=== PATIENT | male | born 1990 | race Asian ===

== ENCOUNTER 2017-09-16 17:06 | Emergency (ER) | payer BC, MEDICAID ==
[~2017-09-16] VITALS: Ht 179.1 cm; Wt 93.0 kg
[2017-09-16] MEDS ORDERED: KETOROLAC 30 MG/1 ML ONE (17:48)
[2017-09-16 17:55] LABS: BLOOD UREA NITROGEN 9 mg/dL (7-18)
[2017-09-16] MEDS ORDERED: SODIUM CHLORIDE 0.9% 1,000ML IVBOLUS ONE (18:00)
[2017-09-16] MEDS ORDERED: KETOROLAC 30 MG/1 ML IVPush ONE (18:00)
[2017-09-16 18:33] LABS: HEMATOCRIT 42.4 % (39.2-51.8); HEMOGLOBIN 15.1 g/dL (13.7-18.0); WHITE BLOOD COUNT 8.4 x10^3/uL (3.4-10)
[2017-09-16 18:42] VITALS: BP 135/87
[2017-09-16] MEDS ORDERED: SODIUM CHLORIDE 0.9% 1,000 ML IV ONE (19:00)
== END 2017-09-16 19:14 | disposition home or self-care (01) ==
LOC: ED 19:08
DX: N20.1 Calculus of ureter (principal)
CPT/HCPCS: 36415; 74000; 80048; 81001; 82040; 85025; 87086; 96361; 96374; 99285; J1885; J7030

== ENCOUNTER 2018-08-16 17:52 | Emergency (ER) | payer MEDICAID ==
[~2018-08-16] VITALS: Ht 177.8 cm; Wt 94.7 kg
[2018-08-16 18:06] VITALS: BP 134/94
[2018-08-16] MEDS ORDERED: DIPH,PERTUSS(ACELL),TET VAC/PF 0.5 ML IM-VACC ONE (18:30)
== END 2018-08-16 20:13 | disposition home or self-care (01) ==
LOC: ED 19:40
DX: S01.01XA Laceration without foreign body of scalp, initial encounter (principal); X58.XXXA Exposure to other specified factors, initial encounter; Y93.89 Activity, other specified; Y92.69 Other specified industrial and construction area as the place of occurrence of the external cause; Y99.8 Other external cause status
CPT/HCPCS: 12031; 70450; 90471; 90715

== ENCOUNTER 2018-08-26 17:27 | Emergency (ER) | payer MEDICAID ==
[~2018-08-26] VITALS: Ht 177.8 cm; Wt 96.1 kg
[2018-08-26 17:32] VITALS: BP 123/86
== END 2018-08-26 18:24 | disposition home or self-care (01) ==
LOC: ED 18:20
DX: S01.01XD Laceration without foreign body of scalp, subsequent encounter (principal); X58.XXXD Exposure to other specified factors, subsequent encounter
CPT/HCPCS: 99281

== ENCOUNTER 2021-05-28 04:49 | Emergency (ER) | payer MEDICAID ==
[~2021-05-28] VITALS: Ht 175.3 cm; Wt 93.9 kg
--- NOTE | 2021-05-28 05:06 | NUR ---
PATIENT STATES HE HAS BEEN HAVING LEFT FLANK PAIN FOR APPROX 2 HOURS, PAIN IS 9/10. PATIENT STATES LAST TIME HE HAD THIS PAIN HE HAD KIDNEY STONES.
[2021-05-28] MEDS ORDERED: MORPHINE SULFATE 4 MG/ML, 1ML ONE ×2 (05:37→08:03)
[2021-05-28] MEDS ORDERED: KETOROLAC 30 MG/1 ML ONE (05:37)
[2021-05-28] MEDS ORDERED: SODIUM CHLORIDE 0.9% 1,000ML IV ONE (06:00)
[2021-05-28] MEDS ORDERED: KETOROLAC 30 MG/1 ML IVPush ONE (06:00)
[2021-05-28] MEDS ORDERED: SODIUM CHLORIDE FLUSH 10ML SYR IVF ONE (06:00)
[2021-05-28] MEDS: MORPHINE SULFATE 4 MG/ML, 1ML IVPush PRN ×2 (06:06→08:06)
[2021-05-28 06:36] LABS: MICROSCOPIC AUTO
--- NOTE | 2021-05-28 06:47 | NUR ---
PATIENT RESTING ON GURNEY. STATES PAIN IS DECREASED. NAD AT THIS TIME.
--- NOTE | 2021-05-28 06:49 | NUR ---
GAVE REPORT TO TERRY JOHNSON.
[2021-05-28] MEDS ORDERED: LEVOFLOXACIN 750 MG TABLET PO ONE (08:00)
[2021-05-28] MEDS ORDERED: LEVOFLOXACIN 750 MG TABLET ONE (08:03)
[2021-05-28 09:37] VITALS: BP 135/88
--- NOTE | 2021-05-28 09:44 | NUR ---
PT REC'VD DISCHARGE INSTRUCTIONS AND EDUCATION. PT HAD NO FURTHER QUESTIONS.
== END 2021-05-28 10:12 | disposition home or self-care (01) ==
LOC: ED 05:28
DX: N13.2 Hydronephrosis with renal and ureteral calculous obstruction (principal)
CPT/HCPCS: 74176; 81001; 87086; 96361; 96374; 96375; 96376; 99284; J1885; J2270; J7030